=== PATIENT | male | born 1970 | race Caucasian/White ===

== ENCOUNTER → 2016-08-14 | Day surgery (SDC) | payer BC ==
[~2016-08-14] VITALS: Ht 162.6 cm; Wt 81.6 kg
[~2016-08-14] MED LIST: CLINDAMYCIN INJ 900MG/6ML VIAL As Ordered ONE; CLINDAMYCIN INJ 900MG/6ML VIAL XX ONE; D5W/0.45% SODIUM CHLORIDE 1,000 ML IV SCH; GLYCOPYRROLATE INJ 0.2 MG/ML 2 ML VIAL As Ordered ONE; HYDROmorphone HCL 2 MG/ML 1ML VIAL (J1170) As Ordered ONE; KETOROLAC 60 MG/2 ML VIAL (J1885) As Ordered ONE; LR 1,000 ML IV SCH; MIDAZOLAM INJ 2 MG/2 ML VIAL (J2250) As Ordered ONE; MORPHINE 10 MG/ML 1ML VIAL As Ordered ONE; MORPHINE 2 MG/ML 1ML SYRINGE As Ordered ONE; NAPR500T2 PO; NEOSTIGMINE 1MG/ML 5 ML SYRINGE (J2710) As Ordered ONE; NORCO, ANEXSIA 5/325MG TABLET (HYDROcodone/ACETAMINOPHEN) PO PRN; ONDANSETRON 4MG/2ML VIAL (J2405) As Ordered ONE; ONDANSETRON 4MG/2ML VIAL (J2405) IV PRN; OXYC1TAB23 PO; PERCOCET 5MG/325MG TAB As Ordered ONE; PROPOFOL 200 MG/20 ML VIAL As Ordered ONE; ROCURONIUM BROMIDE 50 MG/5 ML VIAL As Ordered ONE; SEVOFLURANE INHAL SOLN 250 ML BTL As Ordered ONE; VANCOMYCIN HCL 1,000 MG, VIAL MATE ADAPTER 1 EACH in D5W 250 ML IV ONE; fentaNYL 100 MCG/2 ML INJECTION (J3010) As Ordered ONE
[2016-08-14] MEDS: PERCOCET 5MG/325MG TAB PO PRN ×2 (16:15→16:35)
[2016-08-14] MEDS: fentaNYL 100 MCG/2 ML INJECTION (J3010) IV PRN ×4 (16:15→16:30)
[2016-08-14] MEDS: MORPHINE 4 MG/ML 1ML SYRINGE IV SCH ×4 (16:35→17:05)
--- NOTE | 2016-08-14 17:07 | RO ---
DATE OF PROCEDURE: 08/14/2016 PREPROCEDURE DIAGNOSIS: AC joint dislocation type 5. POSTPROCEDURE DIAGNOSIS: AC joint dislocation type 5. PROCEDURE: AC joint reconstruction with distal clavicle excision using a Gracilis allograft and a Mazzocca technique. SURGEON: Dr. Yuliya Del Castillo [employer]CHOOL [employer] DRIVER: Mr. Tramaine Youngblood ANESTHESIA: COMPLICATIONS: None. ESTIMATED BLOOD LOSS: Less than 50 mL. FINDINGS: He had a very unstable distal clavicle. There is a degenerative changes at the end of the clavicle as well. DESCRIPTION OF PROCEDURE: Antibiotics were given intravenously preoperatively and then a successful general endotracheal tube anesthetic was established. He is placed in semi-beach chair position with a bump under his scapula and his left upper extremity was prepped and draped in the usual sterile fashion. After appropriate time out, then we made a longitudinal saber type incision from the coracoid proximally over the distal aspect of the clavicle. Bovie cautery was used to coagulate the superficial tissue. We then got down to the deep deltotrapezial fascia and then longitudinally along the mid portion of the clavicle I subperiosteal dissected fist the trapezius posterior, then the deltoid anterior to making sure that a full thickness flap developed. Then I dissected down to the coracoid and I skeletonized the neck so I could get good visualization and eventually able to pass the Arthrex passer around the undersurface of the coracoid and I passed a Nitinol wire and then passed the fiber tape and then another loop of suture for future passing of the Gracilis allograft. Once that was passed, my legal administrative assistant Mr. Tramaine Youngblood, whip stitched the Gracilis allograft after it had been obtained from the freezer and thawed in the antibiotic soaked saline solution. As he was doing that I measured 45 mm from the end of the clavicle medial and then the posterior half of the clavicle I made a odilon and then 15 mm distal to that and more anterior on the clavicle I made another odilon for our drill holes for the conoid and trapezoid ligaments. Guide pin was then passed using a wing tip elevator under the clavicle to protect the underlying soft-tissue. Then I used a 5.5 mm reamer and then the second more lateral hole was drilled in a similar fashion by first passing the guide pin and then the reamer. At this point the allograft was passed into the field and we passed that around the coracoid of the previously passed loop of fiber wire. The Gracilis passed easily. I then passed both the fiber tapes and the one limb of the Gracilis up through the conoid drill hole and then the other limb of the fiber tape and the other limb of the Gracilis graft up through the trapezoid hole. Then I secured the graft to the medial hole by passing the 5-5 BioScrew up on to the screwdriver with the fiber tape passed through the middle of the screwdriver and secured the graft. Then my legal administrative assistant Mr. Tramaine Youngblood, placed a maximum downward pressure on the clavicle and I pulled up on the lateral end of the graft to the trapezoid ligament making sure the clavicle is right down next to the coracoid and then secured the BioScrew and this held the clavicle in good position. I then sewed the fiber tape ends together as a backup fixation with several alternating half-hitches and then I sewed the two ends of the remaining long ends of the Gracilis graft as a single half-hitch and then secured it with a small #2-0 fiber wire suture to hold the knot. The two limbs were then passed across the resected end of the clavicle and secured down to the deep capsular tissue of the acromion as a reconstruction of the superior acromioclavicular ligament. Both limbs were secured in that area. We then concluded the procedure by copiously irrigating. Closed the deep deltotrapezial fascia with full thickness #1 PDS sutures, providing good secure fixation of the deltoid and the trapezium back over the top of the clavicle and then we irrigated again and closed the deep subdermal tissue was interrupted #2-0 PDS sutures. Skin was closed with ninoska, covered by adaptic dry sterile bulky dressing. He was then placed into a sling and awakened from general endotracheal anesthesia after having tolerated the procedure well. Transferred to the recovery room in stable condition. There are no intraoperative complications.
[2016-08-14 18:05] VITALS: BP 151/88
== END | disposition home or self-care (01) ==
LOC: M SDC 10:55
PROVIDERS: ATTEND Orthopaedic Surgery
DX: S43.102A Unspecified dislocation of left acromioclavicular joint, initial encounter (principal); Y09 Assault by unspecified means; Y92.89 Other specified places as the place of occurrence of the external cause; Y99.8 Other external cause status; K21.9 Gastro-esophageal reflux disease without esophagitis; M12.9 Arthropathy, unspecified; R29.898 Other symptoms and signs involving the musculoskeletal system; F17.220 Nicotine dependence, chewing tobacco, uncomplicated; Z86.69 Personal history of other diseases of the nervous system and sense organs; Z88.0 Allergy status to penicillin; Z79.899 Other long term (current) drug therapy
CPT/HCPCS: 23120; 23552; 96374; 96375; C1713; J1170; J1885; J2250; J2405; J2710; J3010; J3370